=== PATIENT | female | born 1925 | race Caucasian/White ===

== ENCOUNTER 2016-03-03 10:53 | Inpatient (IN) | payer MEDICARE, BC ==
[2016-03-03] MEDS ORDERED: SODIUM CHLORIDE 0.9% 1000 ML SOL IV SCH (11:30)
[2016-03-03 11:42] LABS: BASOPHILS % (AUTO) 0 % (0-3); EOSINOPHILS % (AUTO) 0 % (0-9); HEMATOCRIT 42 % (35-47); MEAN CORPUSCULAR HGB CONC 34.7 gm/dl (32.0-36.0); MONOCYTES % (AUTO) 7.8 % (0-12)
[2016-03-03 12:05] LABS: CALCIUM 8.5 mg/dl (8.5-10.1); POTASSIUM 3.3 mMol/L (3.5-5.1)
[2016-03-03 12:21] LABS: APPEARANCE,URINE Clear; BILIRUBIN,URINE NEGATIVE (NEGATIVE); COLOR,URINE Yellow; GLUCOSE, URINE (UA) NEGATIVE (NEGATIVE); KETONES,URINE 2+ (NEGATIVE); LEUKOCYTE ESTERASE ,URINE NEGATIVE (NEGATIVE); NITRATE,URINE NEGATIVE (NEGATIVE); OCCULT BLOOD,URINE 1+ (NEG-TRACE); PH,URINE 5.5; UROBILINOGEN,URINE 0.2 (0.2-1.0 EU)
[2016-03-03 12:33] LABS: RBC,URINE 0-2 (0-3AV/HPF); WBC,URINE 0-3 (0-5AV/HPF)
[2016-03-03] MEDS: SODIUM CHLORIDE/KCL 20MEQ 1,000 ML IV SCH ×2 (14:54→22:59)
[2016-03-03] MEDS: POTASSIUM CHLORIDE 10 MEQ TER PO SCH ×3 (15:29→20:46)
[2016-03-03] MEDS: LATANOPROST 0.005% SOL LEFTEYE SCH (20:50)
[2016-03-03] MEDS: DORZOLAMIDE/TIMOLOL 200 DROP SOL LEFTEYE SCH (20:50)
[2016-03-04] MEDS: SODIUM CHLORIDE/KCL 20MEQ 1,000 ML IV SCH ×3 (07:01→23:16)
[2016-03-04 07:44] LABS: CALCIUM 8.2 mg/dl (8.5-10.1); POTASSIUM 4.8 mMol/L (3.5-5.1)
[2016-03-04 08:01] LABS: BASOPHILS % (AUTO) 1 % (0-3); EOSINOPHILS % (AUTO) 1 % (0-9); HEMATOCRIT 38 % (35-47); MONOCYTES % (AUTO) 11.4 % (0-12); NEUTROPHILS % (AUTO) 55.2 % (37-80)
[2016-03-04] MEDS: DORZOLAMIDE/TIMOLOL 200 DROP SOL LEFTEYE SCH ×2 (09:35→20:20)
[2016-03-04] MEDS ORDERED: FAMOTIDINE 20 MG TAB ONE (16:39)
[2016-03-04] MEDS ORDERED: ACETAMINOPHEN 325 MG PO PRN (19:03)
[2016-03-04] MEDS: LATANOPROST 0.005% SOL LEFTEYE SCH (20:28)
[2016-03-05 07:30] LABS: CALCIUM 8.1 mg/dl (8.5-10.1); POTASSIUM 4.3 mMol/L (3.5-5.1)
[2016-03-05] MEDS: SODIUM CHLORIDE/KCL 20MEQ 1,000 ML IV SCH (07:47)
[2016-03-05] MEDS: DORZOLAMIDE/TIMOLOL 200 DROP SOL LEFTEYE SCH ×2 (10:11→20:02)
[2016-03-05] MEDS: ASCORBIC ACID/COPPER/VITAMIN SGL PO SCH ×2 (13:25→20:11)
[2016-03-05] MEDS: SODIUM CHLORIDE 0.9% FLUSH 10 ML SOL IV SCH (17:20)
[2016-03-05] MEDS: LATANOPROST 0.005% SOL LEFTEYE SCH (20:10)
[2016-03-06] MEDS: SODIUM CHLORIDE 0.9% FLUSH 10 ML SOL IV SCH ×2 (01:40→07:34)
[2016-03-06] MEDS: DORZOLAMIDE/TIMOLOL 200 DROP SOL LEFTEYE SCH (09:47)
[2016-03-06] MEDS: ASCORBIC ACID/COPPER/VITAMIN SGL PO SCH (09:47)
[2016-03-06 11:10] VITALS: BP 150/72; PULSE 68; RESP 20; TEMP 96.7; O2SAT 95
== END 2016-03-06 13:03 | disposition swing bed (61) | DRG 641 ==
LOC: ED 10:53 → UNDOADMIN 13:15 → ACUTE CARE 13:15
PROVIDERS: ADMIT Family Medicine; ATTEND Family Medicine
PROC: F01L5ZZ Range of Motion and Joint Integrity Assessment of Musculoskeletal System - Lower Back / Lower Extremity (ICD-10-PCS; principal; 2016-03-04)
PROC: F01L0ZZ Muscle Performance Assessment of Musculoskeletal System - Lower Back / Lower Extremity (ICD-10-PCS; 2016-03-04)
PROC: F01ZDZZ Gait and/or Balance Assessment (ICD-10-PCS; 2016-03-04)
PROC: F01ZCZZ Transfer Assessment (ICD-10-PCS; 2016-03-04)
PROC: F07Z8ZZ Transfer Training Treatment (ICD-10-PCS; 2016-03-04)
PROC: F07L6ZZ Therapeutic Exercise Treatment of Musculoskeletal System - Lower Back / Lower Extremity (ICD-10-PCS; 2016-03-04)
DX: E86.0 Dehydration (principal); M62.82 Rhabdomyolysis; R41.0 Disorientation, unspecified; M25.551 Pain in right hip; W19.XXXA Unspecified fall, initial encounter; E87.6 Hypokalemia; B02.9 Zoster without complications
CPT/HCPCS: 36415; 70450; 73521; 80048; 81001; 82550; 84484; 85025; 93005; 99283; 99284

== ENCOUNTER 2017-06-13 11:45 | Inpatient (IN) | payer MEDICARE, BC ==
[2017-06-13 13:14] LABS: BASOPHILS % (AUTO) 1 % (0-3); EOSINOPHILS % (AUTO) 1 % (0-9); HEMATOCRIT 37 % (35-47); HEMOGLOBIN 12.3 gm/dl (12.0-15.5); LYMPHOCYTES % (AUTO) 19.5 % (10-50); MEAN CORPUSCULAR HEMOGLOBIN 30.3 pg (27.0-32.0); MEAN CORPUSCULAR HGB CONC 33.4 gm/dl (32.0-36.0); MEAN CORPUSCULAR VOLUME 91 fL (81-99); MONOCYTES % (AUTO) 5.2 % (0-12)
[2017-06-13 13:27] LABS: INR 0.99 (0.86-1.12)
[2017-06-13 13:31] LABS: ALBUMIN 3.2 gm/dl (3.4-5.0); BILIRUBIN,TOTAL 0.6 mg/dl (0.2-1.0); CALCIUM 8.3 mg/dl (8.5-10.1); CARBON DIOXIDE 29.8 mEq/L (21-32); CREATININE 0.83 mg/dl (0.60-1.00); POTASSIUM 4.2 mMol/L (3.5-5.1); TOTAL PROTEIN 6.1 gm/dl (6.4-8.2)
[2017-06-13 14:12] LABS: APPEARANCE,URINE Clear; BILIRUBIN,URINE NEGATIVE (NEGATIVE); COLOR,URINE Yellow; GLUCOSE, URINE (UA) NEGATIVE (NEGATIVE); KETONES,URINE NEGATIVE (NEGATIVE); LEUKOCYTE ESTERASE ,URINE NEGATIVE (NEGATIVE); NITRATE,URINE NEGATIVE (NEGATIVE); OCCULT BLOOD,URINE NEGATIVE (NEG-TRACE); UROBILINOGEN,URINE 0.2 (0.2-1.0 EU)
[2017-06-13 14:28] LABS: BACTERIA TRACE (< 1+); CRYSTALS NEGATIVE (0-3 AVE/HPF); EPITHELIAL CELLS 0-1 (SQUAMOUS); RBC,URINE NEGATIVE (0-3AV/HPF); WBC,URINE 0-2 (0-5AV/HPF)
[2017-06-13] MEDS ORDERED: HYDROMORPHONE HCL 2 MG/ML SOL ONE (15:58)
[2017-06-13] MEDS ORDERED: HYDROMORPHONE 1 MG/ML SYRINGE IV ONE (16:00)
[2017-06-13] MEDS: ENOXAPARIN 30 MG SOL SC SCH (18:25)
[2017-06-13 18:29] LABS: ABO A; ANTIBODY SCREEN Negative; RH TYPE Positive
[2017-06-13] MEDS ORDERED: TIMOLOL MALEAT LEFTEYE SCH (21:00)
[2017-06-13] MEDS ORDERED: DORZOLAMIDE HCL LEFTEYE SCH (21:00)
[2017-06-13] MEDS ORDERED: [UNRECOGNIZED DRUG - OTHER] LEFTEYE SCH (21:00)
[2017-06-13] MEDS: SODIUM CHLORIDE 0.9% FLUSH 10 ML SOL IV SCH (21:26)
[2017-06-13] MEDS: ACETAMINOPHEN 325 MG PO PRN (21:26)
[2017-06-14] MEDS: ACETAMINOPHEN 325 MG PO PRN ×4 (02:59→23:25)
[2017-06-14] MEDS: ENOXAPARIN 30 MG SOL SC SCH (04:21)
[2017-06-14] MEDS: SODIUM CHLORIDE 0.9% FLUSH 10 ML SOL IV SCH ×3 (04:23→21:07)
[2017-06-14 07:10] LABS: CALCIUM 8.1 mg/dl (8.5-10.1); CARBON DIOXIDE 29.2 mEq/L (21-32); CREATININE 0.8 mg/dl (0.60-1.00); POTASSIUM 3.8 mMol/L (3.5-5.1)
[2017-06-14 07:18] LABS: BASOPHILS % (AUTO) 1 % (0-3); EOSINOPHILS % (AUTO) 2 % (0-9); HEMATOCRIT 34 % (35-47); HEMOGLOBIN 11.7 gm/dl (12.0-15.5); LYMPHOCYTES % (AUTO) 23.1 % (10-50); MEAN CORPUSCULAR HEMOGLOBIN 30.6 pg (27.0-32.0); MEAN CORPUSCULAR HGB CONC 34.1 gm/dl (32.0-36.0); MEAN CORPUSCULAR VOLUME 90 fL (81-99); MONOCYTES % (AUTO) 7.5 % (0-12); NEUTROPHILS % (AUTO) 66.3 % (37-80)
[2017-06-14 08:14] LABS: UNIT TYPE A POSITIVE
[2017-06-14 08:15] LABS: UNIT TYPE A POSITIVE
[2017-06-14] MEDS ORDERED: HYDROMORPHONE 1 MG/ML SYRINGE IV PRN (09:16)
[2017-06-14] MEDS: FUROSEMIDE 20 MG TAB PO SCH (10:33)
[2017-06-14] MEDS: POTASSIUM CHLORIDE 10 MEQ TER PO SCH (10:33)
[2017-06-14] MEDS: DORZOLAMIDE HCL 2% SOL LEFTEYE SCH ×2 (10:34→21:05)
[2017-06-14] MEDS: TIMOLOL MALEATE 0.5% OPHTHAL SOL LEFTEYE SCH ×2 (10:34→21:05)
[2017-06-14] MEDS ORDERED: DIPHENHYDRAMINE 25 MG CAP PO PRN (19:26)
[2017-06-14] MEDS: OXYCODONE HYDROCHLORIDE 5 MG TAB PO PRN (23:25)
[2017-06-15] MEDS: SODIUM CHLORIDE 0.9% FLUSH 10 ML SOL IV SCH ×5 (05:10→22:01)
[2017-06-15 07:01] LABS: BASOPHILS % (AUTO) 0 % (0-3); EOSINOPHILS % (AUTO) 2 % (0-9); HEMATOCRIT 35 % (35-47); MEAN CORPUSCULAR HEMOGLOBIN 30.4 pg (27.0-32.0); MEAN CORPUSCULAR VOLUME 89 fL (81-99); MONOCYTES % (AUTO) 5.9 % (0-12); NEUTROPHILS % (AUTO) 77.9 % (37-80)
[2017-06-15 07:06] LABS: CARBON DIOXIDE 28.7 mEq/L (21-32); CREATININE 0.86 mg/dl (0.60-1.00); POTASSIUM 3.8 mMol/L (3.5-5.1)
[2017-06-15] MEDS ORDERED: SCOPOLAMINE 1.5MG PATCH TD SCH (08:00)
[2017-06-15] MEDS ORDERED: LACTATED RINGERS 1,000 ML IV ONE (09:00)
[2017-06-15] MEDS: DORZOLAMIDE HCL 2% SOL LEFTEYE SCH ×2 (09:11→20:15)
[2017-06-15] MEDS: TIMOLOL MALEATE 0.5% OPHTHAL SOL LEFTEYE SCH ×2 (09:11→21:21)
[2017-06-15] MEDS ORDERED: PROPOFOL 500 MG/50 ML EMU IV ONE (09:59)
[2017-06-15] MEDS ORDERED: KETAMINE HYDROCHLORIDE 50 MG/ML SOL ONE (10:00)
[2017-06-15] MEDS ORDERED: MIDAZOLAM 2 MG/2 ML SOL ONE (10:00)
[2017-06-15] MEDS ORDERED: LACTATED RINGERS 1,000 ML IV SCH (10:00)
[2017-06-15] MEDS ORDERED: CEFAZOLIN (PREMIX) 1 GM 1 GM/50 ML SOL IV ONE (11:00)
[2017-06-15] MEDS ORDERED: CEFAZOLIN SODIUM 1 GM PDS ONE ×2 (11:13→19:30)
[2017-06-15] MEDS ORDERED: SODIUM CHLORIDE 20 ML 40 ML ONE (11:22)
[2017-06-15] MEDS ORDERED: TRANEXAMIC ACID 100 MG/ML SOL ONE ×2 (11:22→12:34)
[2017-06-15] MEDS ORDERED: BUPIVACAINE LIPOSOME 20 ML SUS ONE (11:22)
[2017-06-15] MEDS ORDERED: PHENYLEPHRINE HYDROCHLORIDE 10 MG/ML SOL ONE (12:05)
[2017-06-15] MEDS ORDERED: CEFAZOLIN SODIUM 1 GM PDS IV ONE (12:22)
[2017-06-15] MEDS ORDERED: EPHEDRINE SULFATE 50 MG/ML SOL ONE (12:26)
[2017-06-15] MEDS ORDERED: PROPOFOL 10 MG/ML EMU IV ONE (12:42)
[2017-06-15] MEDS ORDERED: ONDANSETRON HCL 4 MG/2 ML SOL IV PRN (13:37)
[2017-06-15] MEDS ORDERED: SODIUM CHLORIDE 0.9% 500 ML 500 ML IV PRN (13:37)
[2017-06-15] MEDS ORDERED: MORPHINE SULFATE 10 MG/ML SOL IV PRN (13:37)
[2017-06-15] MEDS ORDERED: ONDANSETRON 4 MG ODT BU PRN (13:37)
[2017-06-15] MEDS ORDERED: MAGNESIUM HYDROXIDE 30 ML SUS PO PRN (13:37)
[2017-06-15] MEDS ORDERED: DEXAMETHASONE 20 MG/5 ML (4 MG/ML SOL) ONE (13:46)
[2017-06-15] MEDS: FUROSEMIDE 20 MG TAB PO SCH (14:13)
[2017-06-15] MEDS: POTASSIUM CHLORIDE 10 MEQ TER PO SCH (14:13)
[2017-06-15] MEDS: LACTATED RINGERS 1,000 ML IV SCH (17:30)
[2017-06-15] MEDS ORDERED: SODIUM CHLORIDE 0.9% 100 ML 100 ML IV ONE (19:30)
[2017-06-15] MEDS: CEFAZOLIN SODIUM 1 GM PDS 1 GM in SODIUM CHLORIDE 0.9% 100 ML 100 ML IV SCH (20:05)
[2017-06-15] MEDS: ACETAMINOPHEN 325 MG PO PRN (21:23)
[2017-06-16] MEDS: LACTATED RINGERS 1,000 ML IV SCH (03:40)
[2017-06-16] MEDS ORDERED: SODIUM CHLORIDE 0.9% 100 ML 100 ML IV ONE (04:38)
[2017-06-16] MEDS ORDERED: CEFAZOLIN SODIUM 1 GM PDS ONE (04:38)
[2017-06-16] MEDS: CEFAZOLIN SODIUM 1 GM PDS 1 GM in SODIUM CHLORIDE 0.9% 100 ML 100 ML IV SCH (04:42)
[2017-06-16] MEDS: SODIUM CHLORIDE 0.9% FLUSH 10 ML SOL IV SCH ×5 (04:53→20:40)
[2017-06-16] MEDS: ACETAMINOPHEN 325 MG PO PRN ×2 (06:50→13:46)
[2017-06-16 07:11] LABS: HEMOGLOBIN 11.1 gm/dl (12.0-15.5); MEAN CORPUSCULAR HEMOGLOBIN 31.1 pg (27.0-32.0); MEAN CORPUSCULAR HGB CONC 34.6 gm/dl (32.0-36.0)
[2017-06-16] MEDS: OXYCODONE HYDROCHLORIDE 5 MG TAB PO PRN ×2 (07:55→14:26)
[2017-06-16] MEDS ORDERED: HYDROMORPHONE HCL 2 MG/ML SOL IV PRN (09:15)
[2017-06-16] MEDS: FUROSEMIDE 20 MG TAB PO SCH (09:41)
[2017-06-16] MEDS: POTASSIUM CHLORIDE 10 MEQ TER PO SCH (09:41)
[2017-06-16] MEDS: TIMOLOL MALEATE 0.5% OPHTHAL SOL LEFTEYE SCH ×2 (09:42→21:13)
[2017-06-16] MEDS: DORZOLAMIDE HCL 2% SOL LEFTEYE SCH ×2 (09:42→20:41)
[2017-06-16] MEDS: ENOXAPARIN 60 MG SOL SC SCH ×2 (09:53→20:37)
[2017-06-16] MEDS ORDERED: TRAMADOL HYDROCHLORIDE 50 MG TAB PO PRN (18:39)
[2017-06-16] MEDS: WARFARIN SODIUM 3 MG TAB PO SCH (18:46)
[2017-06-16] MEDS: ACETAMINOPHEN 500 MG 500 MG TAB PO SCH ×3 (20:39→23:46)
[2017-06-16] MEDS: LATANOPROST 0.005% SOL LEFTEYE SCH (20:58)
[2017-06-17 07:40] LABS: CALCIUM 8.3 mg/dl (8.5-10.1); CARBON DIOXIDE 26.4 mEq/L (21-32); CREATININE 0.81 mg/dl (0.60-1.00); POTASSIUM 3.8 mMol/L (3.5-5.1)
[2017-06-17 07:42] LABS: HEMOGLOBIN 9.9 gm/dl (12.0-15.5); INR 1.1 (0.86-1.12); MEAN CORPUSCULAR HEMOGLOBIN 30.7 pg (27.0-32.0); MEAN CORPUSCULAR HGB CONC 34.2 gm/dl (32.0-36.0)
[2017-06-17] MEDS: FUROSEMIDE 20 MG TAB PO SCH (09:37)
[2017-06-17] MEDS: ACETAMINOPHEN 500 MG 500 MG TAB PO SCH ×3 (09:37→20:28)
[2017-06-17] MEDS: POTASSIUM CHLORIDE 10 MEQ TER PO SCH (09:37)
[2017-06-17] MEDS: SODIUM CHLORIDE 0.9% FLUSH 10 ML SOL IV SCH ×3 (09:39→20:14)
[2017-06-17] MEDS: DORZOLAMIDE HCL 2% SOL LEFTEYE SCH ×2 (09:39→20:15)
[2017-06-17] MEDS: TIMOLOL MALEATE 0.5% OPHTHAL SOL LEFTEYE SCH ×2 (09:39→20:50)
[2017-06-17] MEDS: ENOXAPARIN 60 MG SOL SC SCH ×2 (09:40→20:12)
[2017-06-17] MEDS: WARFARIN SODIUM 3 MG TAB PO SCH (18:19)
[2017-06-17] MEDS: LATANOPROST 0.005% SOL LEFTEYE SCH (20:31)
[2017-06-18] MEDS: SODIUM CHLORIDE 0.9% FLUSH 10 ML SOL IV SCH ×3 (05:34→21:15)
[2017-06-18 07:35] LABS: HEMOGLOBIN 9.4 gm/dl (12.0-15.5); MEAN CORPUSCULAR HEMOGLOBIN 30.5 pg (27.0-32.0); MEAN CORPUSCULAR HGB CONC 33.9 gm/dl (32.0-36.0)
[2017-06-18 07:55] LABS: CALCIUM 7.9 mg/dl (8.5-10.1); CARBON DIOXIDE 28.7 mEq/L (21-32); CREATININE 0.72 mg/dl (0.60-1.00); POTASSIUM 4.2 mMol/L (3.5-5.1)
[2017-06-18] MEDS: FUROSEMIDE 20 MG TAB PO SCH (08:32)
[2017-06-18] MEDS: ACETAMINOPHEN 500 MG 500 MG TAB PO SCH ×3 (08:32→21:04)
[2017-06-18] MEDS: POTASSIUM CHLORIDE 10 MEQ TER PO SCH (08:32)
[2017-06-18] MEDS: TIMOLOL MALEATE 0.5% OPHTHAL SOL LEFTEYE SCH ×2 (08:35→21:44)
[2017-06-18] MEDS: DORZOLAMIDE HCL 2% SOL LEFTEYE SCH ×2 (08:36→21:02)
[2017-06-18] MEDS: ENOXAPARIN 60 MG SOL SC SCH ×2 (08:37→21:00)
[2017-06-18] MEDS: WARFARIN SODIUM 3 MG TAB PO SCH (18:13)
[2017-06-18] MEDS: AMLODIPINE 5 MG TAB PO SCH (18:13)
[2017-06-18] MEDS: LATANOPROST 0.005% SOL LEFTEYE SCH (21:18)
[2017-06-19] MEDS: SODIUM CHLORIDE 0.9% FLUSH 10 ML SOL IV SCH ×2 (05:57→13:57)
[2017-06-19 07:26] LABS: BASOPHILS % (AUTO) 1 % (0-3); EOSINOPHILS % (AUTO) 2 % (0-9); HEMATOCRIT 29 % (35-47); HEMOGLOBIN 9.7 gm/dl (12.0-15.5); LYMPHOCYTES % (AUTO) 20.3 % (10-50); MEAN CORPUSCULAR HEMOGLOBIN 30.4 pg (27.0-32.0); MEAN CORPUSCULAR HGB CONC 33.7 gm/dl (32.0-36.0); MEAN CORPUSCULAR VOLUME 90 fL (81-99); NEUTROPHILS % (AUTO) 70.2 % (37-80)
[2017-06-19 07:29] LABS: CARBON DIOXIDE 26.1 mEq/L (21-32); CREATININE 0.68 mg/dl (0.60-1.00)
[2017-06-19 07:36] LABS: INR 3.09 (0.86-1.12)
[2017-06-19] MEDS: ACETAMINOPHEN 500 MG 500 MG TAB PO SCH ×2 (08:35→13:57)
[2017-06-19 08:36] VITALS: RESP 20
[2017-06-19] MEDS: FUROSEMIDE 20 MG TAB PO SCH (08:36)
[2017-06-19] MEDS: POTASSIUM CHLORIDE 10 MEQ TER PO SCH (08:36)
[2017-06-19] MEDS: AMLODIPINE 5 MG TAB PO SCH (08:37)
[2017-06-19] MEDS: TIMOLOL MALEATE 0.5% OPHTHAL SOL LEFTEYE SCH (08:39)
[2017-06-19] MEDS: DORZOLAMIDE HCL 2% SOL LEFTEYE SCH (08:40)
[2017-06-19 16:08] VITALS: BP 144/81; PULSE 70; TEMP 98.6; O2SAT 99
[2017-06-19] MEDS ORDERED: WARFARIN SODIUM 2.5 MG TAB PO SCH (18:00)
[2017-06-19] MEDS ORDERED: WARFARIN SODIUM 2 MG TAB PO SCH (18:00)
== END 2017-06-19 16:10 | disposition swing bed (61) | DRG 470 ==
LOC: ED 11:45 → ACUTE CARE 16:05 → UNDOADMIN 16:05 → ACUTE CARE 16:15
PROVIDERS: ADMIT Family Medicine; ATTEND Family Medicine
PROC: 0SRR0J9 Replacement of Right Hip Joint, Femoral Surface with Synthetic Substitute, Cemented, Open Approach (ICD-10-PCS; principal; 2017-06-15 11:30)
PROC: F01ZBFZ Bed Mobility Assessment using Assistive, Adaptive, Supportive or Protective Equipment (ICD-10-PCS; 2017-06-16)
PROC: F01K0ZZ Muscle Performance Assessment of Musculoskeletal System - Upper Back / Upper Extremity (ICD-10-PCS; 2017-06-16)
PROC: F02Z0FZ Bathing/Showering Assessment using Assistive, Adaptive, Supportive or Protective Equipment (ICD-10-PCS; 2017-06-16)
PROC: F02Z3FZ Grooming/Personal Hygiene Assessment using Assistive, Adaptive, Supportive or Protective Equipment (ICD-10-PCS; 2017-06-16)
DX: S72.011A Unspecified intracapsular fracture of right femur, initial encounter for closed fracture (principal); S72.001A Fracture of unspecified part of neck of right femur, initial encounter for closed fracture; M25.511 Pain in right shoulder; I69.911 Memory deficit following unspecified cerebrovascular disease; I10 Essential (primary) hypertension; R60.9 Edema, unspecified; W18.39XA Other fall on same level, initial encounter; R21 Rash and other nonspecific skin eruption; M62.81 Muscle weakness (generalized); R33.9 Retention of urine, unspecified
CPT/HCPCS: 36415; 51798; 73030; 73200; 73501; 73502; 80048; 80053; 81001; 85025; 85027; 85610; 86850; 86900; 86901; 86920; 93005; 94150; 94762; 96374; 99070; 99283; 99285; J0690; J1100; J1170; J1650; J2250; A4450; A6232; A9270-GY; J2370; J2704; J3490; L1830; Q3014

== ENCOUNTER 2017-06-19 12:11 | Inpatient (IN) | payer MEDICARE, BC ==
[2017-06-19] MEDS ORDERED: ONDANSETRON 4 MG ODT BU PRN (15:48)
[2017-06-19] MEDS ORDERED: MAGNESIUM HYDROXIDE 30 ML SUS PO PRN (15:48)
[2017-06-19] MEDS ORDERED: WARFARIN SODIUM 2 MG TAB PO SCH ×2 (18:00)
[2017-06-19] MEDS ORDERED: DORZOLAMIDE HCL OP SCH (21:00)
[2017-06-19] MEDS ORDERED: EYE OP SCH (21:00)
[2017-06-19] MEDS ORDERED: TIMOLOL MALEATE 0.5% OP SCH (21:00)
[2017-06-19] MEDS ORDERED: LATANOPROST 0.005% LEFTEYE SCH (21:00)
[2017-06-19] MEDS: ACETAMINOPHEN 500 MG 500 MG TAB PO SCH (21:21)
[2017-06-20 07:22] LABS: INR 3.9 (0.86-1.12)
[2017-06-20] MEDS: POTASSIUM CHLORIDE 10 MEQ TER PO SCH (09:34)
[2017-06-20] MEDS: FUROSEMIDE 20 MG TAB PO SCH (09:34)
[2017-06-20] MEDS: TIMOLOL MALEATE 0.5% OPHTHAL SOL OP SCH ×2 (09:35→20:19)
[2017-06-20] MEDS: ACETAMINOPHEN 500 MG 500 MG TAB PO SCH ×3 (09:36→20:19)
[2017-06-20] MEDS: DORZOLAMIDE HCL 2% SOL OP SCH ×2 (09:36→20:19)
[2017-06-20] MEDS: AMLODIPINE 5 MG TAB PO SCH (09:59)
[2017-06-20] MEDS: LATANOPROST 0.005% SOL LEFTEYE SCH (20:19)
[2017-06-20] MEDS: HYDROCORTISONE 2.5% TOP SCH (21:25)
[2017-06-21 07:33] LABS: INR 3.49 (0.86-1.12)
[2017-06-21] MEDS: DORZOLAMIDE HCL 2% SOL OP SCH ×2 (08:00→20:33)
[2017-06-21] MEDS: POTASSIUM CHLORIDE 10 MEQ TER PO SCH (08:01)
[2017-06-21] MEDS: FUROSEMIDE 20 MG TAB PO SCH (08:01)
[2017-06-21] MEDS: ACETAMINOPHEN 500 MG 500 MG TAB PO SCH ×3 (08:01→20:33)
[2017-06-21] MEDS: AMLODIPINE 5 MG TAB PO SCH (08:01)
[2017-06-21] MEDS: TIMOLOL MALEATE 0.5% OPHTHAL SOL OP SCH ×2 (08:05→20:33)
[2017-06-21] MEDS: HYDROCORTISONE 2.5% TOP SCH ×2 (09:02→20:32)
[2017-06-21] MEDS: LATANOPROST 0.005% SOL LEFTEYE SCH (20:33)
[2017-06-22] MEDS: ACETAMINOPHEN 500 MG 500 MG TAB PO SCH ×3 (08:30→21:17)
[2017-06-22] MEDS: POTASSIUM CHLORIDE 10 MEQ TER PO SCH (08:30)
[2017-06-22] MEDS: FUROSEMIDE 20 MG TAB PO SCH (08:31)
[2017-06-22] MEDS: AMLODIPINE 5 MG TAB PO SCH (08:31)
[2017-06-22] MEDS: DORZOLAMIDE HCL 2% SOL OP SCH ×2 (08:32→21:16)
[2017-06-22] MEDS: TIMOLOL MALEATE 0.5% OPHTHAL SOL OP SCH ×2 (08:33→21:16)
[2017-06-22] MEDS: HYDROCORTISONE 2.5% TOP SCH ×2 (09:35→21:16)
[2017-06-22 14:46] LABS: INR 2.87 (0.86-1.12)
[2017-06-22] MEDS ORDERED: WARFARIN SODIUM 1 MG TAB PO ONE (18:00)
[2017-06-22] MEDS: LATANOPROST 0.005% SOL LEFTEYE SCH (21:16)
[2017-06-23 08:35] LABS: INR 2.83 (0.86-1.12)
[2017-06-23] MEDS: POTASSIUM CHLORIDE 10 MEQ TER PO SCH (08:56)
[2017-06-23] MEDS: AMLODIPINE 5 MG TAB PO SCH (08:57)
[2017-06-23] MEDS: FUROSEMIDE 20 MG TAB PO SCH (08:57)
[2017-06-23] MEDS: HYDROCORTISONE 2.5% TOP SCH ×2 (08:58→21:00)
[2017-06-23] MEDS: ACETAMINOPHEN 500 MG 500 MG TAB PO SCH ×3 (08:59→20:38)
[2017-06-23] MEDS: TIMOLOL MALEATE 0.5% OPHTHAL SOL OP SCH ×2 (09:00→20:38)
[2017-06-23] MEDS: DORZOLAMIDE HCL 2% SOL OP SCH ×2 (09:00→20:41)
[2017-06-23] MEDS: WARFARIN SODIUM 1 MG TAB PO SCH (18:18)
[2017-06-23] MEDS: LATANOPROST 0.005% SOL LEFTEYE SCH (21:34)
[2017-06-24] MEDS: TIMOLOL MALEATE 0.5% OPHTHAL SOL OP SCH ×2 (08:43→20:13)
[2017-06-24] MEDS: AMLODIPINE 5 MG TAB PO SCH (08:43)
[2017-06-24] MEDS: HYDROCORTISONE 2.5% TOP SCH ×2 (08:43→20:00)
[2017-06-24] MEDS: ACETAMINOPHEN 500 MG 500 MG TAB PO SCH ×3 (08:43→20:12)
[2017-06-24] MEDS: FUROSEMIDE 20 MG TAB PO SCH (08:43)
[2017-06-24] MEDS: POTASSIUM CHLORIDE 10 MEQ TER PO SCH (08:43)
[2017-06-24] MEDS: DORZOLAMIDE HCL 2% SOL OP SCH ×2 (08:43→20:15)
[2017-06-24] MEDS: WARFARIN SODIUM 1 MG TAB PO SCH (17:56)
[2017-06-24] MEDS: LATANOPROST 0.005% SOL LEFTEYE SCH (20:18)
[2017-06-25] MEDS: HYDROCORTISONE 2.5% TOP SCH ×2 (08:23→20:00)
[2017-06-25] MEDS: FUROSEMIDE 20 MG TAB PO SCH (08:23)
[2017-06-25] MEDS: POTASSIUM CHLORIDE 10 MEQ TER PO SCH (08:23)
[2017-06-25] MEDS: ACETAMINOPHEN 500 MG 500 MG TAB PO SCH ×3 (08:23→20:00)
[2017-06-25] MEDS: AMLODIPINE 5 MG TAB PO SCH (08:23)
[2017-06-25] MEDS: TIMOLOL MALEATE 0.5% OPHTHAL SOL OP SCH ×2 (09:15→20:00)
[2017-06-25] MEDS: DORZOLAMIDE HCL 2% SOL OP SCH ×2 (09:16→20:00)
[2017-06-25] MEDS ORDERED: WARFARIN SODIUM 3 MG TAB PO SCH ×2 (18:00)
[2017-06-25] MEDS: LATANOPROST 0.005% SOL LEFTEYE SCH (20:00)
[2017-06-26 07:44] LABS: INR 1.9 (0.86-1.12)
[2017-06-26] MEDS: DORZOLAMIDE HCL 2% SOL OP SCH ×2 (08:34→20:26)
[2017-06-26] MEDS: ACETAMINOPHEN 500 MG 500 MG TAB PO SCH ×3 (08:35→20:25)
[2017-06-26] MEDS: POTASSIUM CHLORIDE 10 MEQ TER PO SCH (08:35)
[2017-06-26] MEDS: AMLODIPINE 5 MG TAB PO SCH (08:36)
[2017-06-26] MEDS: FUROSEMIDE 20 MG TAB PO SCH (08:36)
[2017-06-26] MEDS: TIMOLOL MALEATE 0.5% OPHTHAL SOL OP SCH ×2 (08:36→20:26)
[2017-06-26] MEDS: WARFARIN SODIUM 3 MG TAB PO SCH (17:35)
[2017-06-26] MEDS: LATANOPROST 0.005% SOL LEFTEYE SCH (20:26)
[2017-06-27] MEDS: AMLODIPINE 5 MG TAB PO SCH (08:07)
[2017-06-27] MEDS: POTASSIUM CHLORIDE 10 MEQ TER PO SCH (08:07)
[2017-06-27] MEDS: ACETAMINOPHEN 500 MG 500 MG TAB PO SCH ×3 (08:07→20:29)
[2017-06-27] MEDS: FUROSEMIDE 20 MG TAB PO SCH (08:07)
[2017-06-27] MEDS: TIMOLOL MALEATE 0.5% OPHTHAL SOL OP SCH ×2 (08:08→20:30)
[2017-06-27] MEDS: DORZOLAMIDE HCL 2% SOL OP SCH ×2 (08:08→20:31)
[2017-06-27 10:21] LABS: CALCIUM 8.2 mg/dl (8.5-10.1); CARBON DIOXIDE 27.2 mEq/L (21-32); CREATININE 0.86 mg/dl (0.60-1.00); POTASSIUM 3.9 mMol/L (3.5-5.1)
[2017-06-27] MEDS: WARFARIN SODIUM 3 MG TAB PO SCH (18:52)
[2017-06-27] MEDS: LATANOPROST 0.005% SOL LEFTEYE SCH (20:31)
[2017-06-28] MEDS: FUROSEMIDE 20 MG TAB PO SCH (09:35)
[2017-06-28] MEDS: AMLODIPINE 5 MG TAB PO SCH (09:35)
[2017-06-28] MEDS: POTASSIUM CHLORIDE 10 MEQ TER PO SCH (09:35)
[2017-06-28] MEDS: ACETAMINOPHEN 500 MG 500 MG TAB PO SCH ×3 (09:35→20:34)
[2017-06-28] MEDS: TIMOLOL MALEATE 0.5% OPHTHAL SOL OP SCH ×2 (09:36→20:34)
[2017-06-28] MEDS: DORZOLAMIDE HCL 2% SOL OP SCH ×2 (09:36→20:34)
[2017-06-28 14:09] LABS: APPEARANCE,URINE Cloudy; BILIRUBIN,URINE NEGATIVE (NEGATIVE); COLOR,URINE Yellow; GLUCOSE, URINE (UA) NEGATIVE (NEGATIVE); KETONES,URINE NEGATIVE (NEGATIVE); LEUKOCYTE ESTERASE ,URINE 3+ (NEGATIVE); NITRATE,URINE POSITIVE (NEGATIVE); OCCULT BLOOD,URINE 2+ (NEG-TRACE); UROBILINOGEN,URINE 0.2 (0.2-1.0 EU)
[2017-06-28 14:26] LABS: RBC,URINE 15-20 (0-3AV/HPF); WBC,URINE TNTC (0-5AV/HPF)
[2017-06-28 14:27] LABS: BACTERIA 3+ (< 1+); CRYSTALS NEGATIVE (0-3 AVE/HPF)
[2017-06-28] MEDS: CIPROFLOXACIN HCL 500 MG TAB PO SCH (16:18)
[2017-06-28] MEDS ORDERED: WARFARIN SODIUM 1 MG TAB PO SCH (18:00)
[2017-06-28] MEDS: LATANOPROST 0.005% SOL LEFTEYE SCH (20:33)
[2017-06-29] MEDS: CIPROFLOXACIN HCL 500 MG TAB PO SCH ×2 (05:00→16:11)
[2017-06-29 07:30] LABS: INR 2.89 (0.86-1.12)
[2017-06-29 07:56] VITALS: RESP 18
[2017-06-29] MEDS: ACETAMINOPHEN 500 MG 500 MG TAB PO SCH ×3 (08:23→20:58)
[2017-06-29] MEDS: POTASSIUM CHLORIDE 10 MEQ TER PO SCH (08:23)
[2017-06-29] MEDS: TIMOLOL MALEATE 0.5% OPHTHAL SOL OP SCH ×2 (08:24→20:58)
[2017-06-29] MEDS: AMLODIPINE 5 MG TAB PO SCH (08:24)
[2017-06-29] MEDS: DORZOLAMIDE HCL 2% SOL OP SCH ×2 (08:24→20:58)
[2017-06-29] MEDS: FUROSEMIDE 20 MG TAB PO SCH (08:27)
[2017-06-29] MEDS ORDERED: WARFARIN SODIUM 1 MG TAB PO SCH (18:00)
[2017-06-29] MEDS ORDERED: WARFARIN SODIUM 3 MG TAB PO SCH (18:00)
[2017-06-29] MEDS: LATANOPROST 0.005% SOL LEFTEYE SCH (20:58)
[2017-06-30] MEDS: CIPROFLOXACIN HCL 500 MG TAB PO SCH (03:32)
[2017-06-30] MEDS: POTASSIUM CHLORIDE 10 MEQ TER PO SCH (08:35)
[2017-06-30] MEDS: FUROSEMIDE 20 MG TAB PO SCH (08:35)
[2017-06-30] MEDS: ACETAMINOPHEN 500 MG 500 MG TAB PO SCH (08:35)
[2017-06-30] MEDS: AMLODIPINE 5 MG TAB PO SCH (08:37)
[2017-06-30] MEDS: DORZOLAMIDE HCL 2% SOL OP SCH (08:38)
[2017-06-30] MEDS: TIMOLOL MALEATE 0.5% OPHTHAL SOL OP SCH (08:43)
[2017-06-30 09:17] VITALS: BP 124/81; PULSE 90; TEMP 99; O2SAT 97
== END 2017-06-30 12:35 | DRG 536 ==
LOC: ACUTE CARE 16:15 → UNDOADMIN 16:16
PROVIDERS: ADMIT Family Medicine; ATTEND Family Medicine
PROC: F01K5ZZ Range of Motion and Joint Integrity Assessment of Musculoskeletal System - Upper Back / Upper Extremity (ICD-10-PCS; principal; 2017-06-20)
PROC: F02Z1FZ Dressing Assessment using Assistive, Adaptive, Supportive or Protective Equipment (ICD-10-PCS; 2017-06-20)
PROC: F02Z3FZ Grooming/Personal Hygiene Assessment using Assistive, Adaptive, Supportive or Protective Equipment (ICD-10-PCS; 2017-06-20)
DX: S72.001A Fracture of unspecified part of neck of right femur, initial encounter for closed fracture (principal); N39.0 Urinary tract infection, site not specified; H35.30 Unspecified macular degeneration; I10 Essential (primary) hypertension; R41.89 Other symptoms and signs involving cognitive functions and awareness; R60.9 Edema, unspecified; R33.9 Retention of urine, unspecified; Z96.641 Presence of right artificial hip joint
CPT/HCPCS: 36415; 51798; 72120; 80048; 81001; 85610; 87077; 87088; 87186; A9270-GY

== ENCOUNTER 2017-08-15 19:30 | Inpatient (IN) | payer MEDICARE, BC ==
[2017-08-15 20:25] LABS: BASOPHILS % (AUTO) 1 % (0-3); EOSINOPHILS % (AUTO) 2 % (0-9); HEMATOCRIT 35 % (35-47); HEMOGLOBIN 11.6 gm/dl (12.0-15.5); LYMPHOCYTES % (AUTO) 28.7 % (10-50); MEAN CORPUSCULAR HEMOGLOBIN 29.3 pg (27.0-32.0); MEAN CORPUSCULAR HGB CONC 33.2 gm/dl (32.0-36.0); MEAN CORPUSCULAR VOLUME 88 fL (81-99); MONOCYTES % (AUTO) 6.5 % (0-12); NEUTROPHILS % (AUTO) 61.9 % (37-80)
[2017-08-15 20:37] LABS: CARBON DIOXIDE 28.7 mEq/L (21-32); CREATININE 0.96 mg/dl (0.60-1.00); POTASSIUM 4.1 mMol/L (3.5-5.1)
[2017-08-15 20:42] LABS: APPEARANCE,URINE Clear; BILIRUBIN,URINE NEGATIVE (NEGATIVE); COLOR,URINE Yellow; GLUCOSE, URINE (UA) NEGATIVE (NEGATIVE); KETONES,URINE NEGATIVE (NEGATIVE); LEUKOCYTE ESTERASE ,URINE NEGATIVE (NEGATIVE); NITRATE,URINE NEGATIVE (NEGATIVE); OCCULT BLOOD,URINE NEGATIVE (NEG-TRACE); UROBILINOGEN,URINE 0.2 (0.2-1.0 EU)
[2017-08-15 20:58] LABS: BACTERIA NEGATIVE (< 1+); CRYSTALS NEGATIVE (0-3 AVE/HPF); EPITHELIAL CELLS 0-2 (SQUAMOUS); RBC,URINE NEG (0-3AV/HPF); WBC,URINE 0-1 (0-5AV/HPF)
[2017-08-15] MEDS ORDERED: LIDOCAINE HCL 1% MDV 50 ML SOL SC ONE (21:02)
[2017-08-15] MEDS ORDERED: LIDOCAINE HCL 1% MPF 30 SOL ONE (21:04)
[2017-08-15] MEDS ORDERED: BACITRACIN 500 U/GM OIN TOP ONE (21:36)
[2017-08-15] MEDS ORDERED: SODIUM CHLORIDE 0.9% 1000ML 1,000 ML IV ONE (22:12)
[2017-08-15] MEDS ORDERED: KETOROLAC TROMETHAMINE 30 MG/ML SOL IV ONE (22:15)
[2017-08-15] MEDS ORDERED: KETOROLAC TROMETHAMINE 30 MG/ML SOL ONE (22:30)
[2017-08-15] MEDS ORDERED: TDAP VACCINE 0.5 ML SUS IM ONE ×2 (22:48→22:49)
[2017-08-15] MEDS ORDERED: MAGNESIUM HYDROXIDE 30 ML SUS PO PRN (23:20)
[2017-08-15] MEDS: ACETAMINOPHEN 500 MG 500 MG TAB PO SCH (23:45)
[2017-08-16] MEDS: ACETAMINOPHEN 500 MG 500 MG TAB PO SCH ×2 (07:55→16:20)
[2017-08-16] MEDS ORDERED: ENOXAPARIN 40 MG SOL SC SCH (08:00)
[2017-08-16] MEDS ORDERED: TIMOLOL MALEATE 0.5% LEFTEYE SCH (09:00)
[2017-08-16] MEDS ORDERED: DORZOLAMIDE LEFTEYE SCH (09:00)
[2017-08-16] MEDS: AMLODIPINE 5 MG TAB PO SCH (09:20)
[2017-08-16] MEDS: FUROSEMIDE 20 MG TAB PO SCH (09:20)
[2017-08-16] MEDS: DORZOLAMIDE HCL 2% SOL LEFTEYE SCH ×2 (09:22→20:17)
[2017-08-16] MEDS: TIMOLOL MALEATE 0.5% OPHTHAL SOL LEFTEYE SCH ×2 (09:22→20:12)
[2017-08-16 09:26] LABS: ABO A; ANTIBODY SCREEN Negative; RH TYPE Positive; UNIT TYPE A POSITIVE
[2017-08-16] MEDS: SODIUM CHLORIDE 0.9% FLUSH 10 ML SOL IV SCH ×2 (09:30→17:05)
[2017-08-16] MEDS: IBUPROFEN 400 MG TAB PO PRN (20:15)
[2017-08-16] MEDS: LATANOPROST 0.005% SOL LEFTEYE SCH (20:22)
[2017-08-17] MEDS: ACETAMINOPHEN 500 MG 500 MG TAB PO SCH ×2 (00:04→10:35)
[2017-08-17] MEDS: SODIUM CHLORIDE 0.9% FLUSH 10 ML SOL IV SCH ×3 (01:05→17:24)
[2017-08-17] MEDS ORDERED: SCOPOLAMINE 1.5MG PATCH TD SCH (06:00)
[2017-08-17] MEDS ORDERED: LACTATED RINGERS 1,000 ML IV ONE (06:00)
[2017-08-17] MEDS ORDERED: LACTATED RINGERS 1,000 ML IV SCH (07:00)
[2017-08-17] MEDS ORDERED: TRANEXAMIC ACID 100 MG/ML SOL ONE (07:19)
[2017-08-17] MEDS ORDERED: SODIUM CHLORIDE 20 ML 20 ML ONE (07:19)
[2017-08-17] MEDS ORDERED: BUPIVACAINE LIPOSOME 20 ML SUS ONE (07:19)
[2017-08-17] MEDS ORDERED: MIDAZOLAM 2 MG/2 ML SOL ONE (07:38)
[2017-08-17] MEDS ORDERED: FENTANYL 100MCG/2ML SOL ONE (07:38)
[2017-08-17] MEDS ORDERED: PROPOFOL 10 MG/ML EMU IV ONE ×2 (07:39→07:42)
[2017-08-17 07:46] LABS: CALCIUM 8.7 mg/dl (8.5-10.1); CARBON DIOXIDE 28.1 mEq/L (21-32); CREATININE 0.77 mg/dl (0.60-1.00); POTASSIUM 3.6 mMol/L (3.5-5.1)
[2017-08-17 07:49] LABS: BASOPHILS % (AUTO) 1 % (0-3); EOSINOPHILS % (AUTO) 3 % (0-9); HEMATOCRIT 34 % (35-47); HEMOGLOBIN 11.2 gm/dl (12.0-15.5); MEAN CORPUSCULAR HEMOGLOBIN 28.9 pg (27.0-32.0); MEAN CORPUSCULAR HGB CONC 33.3 gm/dl (32.0-36.0); MEAN CORPUSCULAR VOLUME 87 fL (81-99); MONOCYTES % (AUTO) 5.5 % (0-12); NEUTROPHILS % (AUTO) 79.4 % (37-80)
[2017-08-17] MEDS: TRANEXAMIC ACID 100 MG/ML SOL ONE ×2 (08:55→09:37)
[2017-08-17] MEDS ORDERED: GLYCOPYRROLATE 0.2 MG/ML SOL ONE (09:00)
[2017-08-17] MEDS ORDERED: CEFAZOLIN SODIUM 1 GM PDS ONE ×3 (09:00→23:18)
[2017-08-17] MEDS ORDERED: EPHEDRINE SULFATE 50 MG/ML SOL ONE (09:04)
[2017-08-17] MEDS ORDERED: PHENYLEPHRINE HYDROCHLORIDE 10 MG/ML SOL ONE (09:04)
[2017-08-17] MEDS ORDERED: MAGNESIUM HYDROXIDE 30 ML SUS PO PRN (09:34)
[2017-08-17] MEDS ORDERED: ALUMINUM/MAGNESIUM 30 ML SUS PO PRN (09:34)
[2017-08-17] MEDS ORDERED: SODIUM CHLORIDE 0.9% 500 ML 500 ML IV PRN (09:34)
[2017-08-17] MEDS ORDERED: DIPHENHYDRAMINE 25 MG CAP PO PRN (09:34)
[2017-08-17] MEDS ORDERED: ONDANSETRON 4 MG ODT BU PRN (09:34)
[2017-08-17] MEDS ORDERED: FLEET ENEMA PR PRN (09:34)
[2017-08-17] MEDS ORDERED: HYDROMORPHONE HCL 2 MG/ML SOL IV PRN (09:34)
[2017-08-17] MEDS ORDERED: ONDANSETRON HCL 4 MG/2 ML SOL IV PRN (09:34)
[2017-08-17] MEDS ORDERED: BISACODYL 10 MG SUP PR PRN (09:34)
[2017-08-17] MEDS ORDERED: DIAZEPAM 5 MG TAB PO PRN (09:34)
[2017-08-17] MEDS ORDERED: SODIUM CHLORIDE 0.9% FLUSH 10 ML SOL IV ONE (09:37)
[2017-08-17] MEDS ORDERED: SODIUM CHLORIDE 0.9% FLUSH 10 ML SOL IV SCH (09:45)
[2017-08-17] MEDS: DEXTROSE/SALINE 0.45/KCL 20MEQ 1,000 ML/1,000 ML SOL IV SCH ×2 (11:35→23:33)
[2017-08-17] MEDS: DORZOLAMIDE HCL 2% SOL LEFTEYE SCH ×2 (11:54→21:38)
[2017-08-17] MEDS: TIMOLOL MALEATE 0.5% OPHTHAL SOL LEFTEYE SCH ×2 (11:57→21:38)
[2017-08-17] MEDS: AMLODIPINE 5 MG TAB PO SCH (12:25)
[2017-08-17] MEDS: FUROSEMIDE 20 MG TAB PO SCH (12:25)
[2017-08-17] MEDS: ACETAMINOPHEN 325 MG PO SCH ×3 (13:26→21:37)
[2017-08-17] MEDS: CEFAZOLIN (PREMIX) 1 GM 1 GM/50 ML SOL IV SCH ×2 (15:42→23:27)
[2017-08-17] MEDS: SENNOSIDES A AND B 8.6 MG TAB PO SCH (21:37)
[2017-08-17] MEDS: LATANOPROST 0.005% SOL LEFTEYE SCH (21:38)
[2017-08-18] MEDS: SODIUM CHLORIDE 0.9% FLUSH 10 ML SOL IV SCH ×3 (01:48→18:39)
[2017-08-18] MEDS: IBUPROFEN 400 MG TAB PO PRN (01:52)
[2017-08-18 07:50] LABS: HEMOGLOBIN 11.1 gm/dl (12.0-15.5); MEAN CORPUSCULAR HEMOGLOBIN 30.6 pg (27.0-32.0); MEAN CORPUSCULAR HGB CONC 35.5 gm/dl (32.0-36.0)
[2017-08-18 09:07] LABS: CALCIUM 8.2 mg/dl (8.5-10.1); CARBON DIOXIDE 26.2 mEq/L (21-32); CREATININE 0.67 mg/dl (0.60-1.00); POTASSIUM 3.8 mMol/L (3.5-5.1)
[2017-08-18] MEDS: AMLODIPINE 5 MG TAB PO SCH (09:12)
[2017-08-18] MEDS: FUROSEMIDE 20 MG TAB PO SCH (09:12)
[2017-08-18] MEDS: DORZOLAMIDE HCL 2% SOL LEFTEYE SCH ×2 (09:13→21:00)
[2017-08-18] MEDS: TIMOLOL MALEATE 0.5% OPHTHAL SOL LEFTEYE SCH ×2 (09:13→21:00)
[2017-08-18] MEDS: ACETAMINOPHEN 325 MG PO SCH ×4 (09:13→21:15)
[2017-08-18] MEDS: RIVAROXABAN 10 MG TAB PO SCH (09:14)
[2017-08-18] MEDS: DEXTROSE/SALINE 0.45/KCL 20MEQ 1,000 ML/1,000 ML SOL IV SCH (11:00)
[2017-08-18] MEDS: LATANOPROST 0.005% SOL LEFTEYE SCH (21:00)
[2017-08-19] MEDS: SENNOSIDES A AND B 8.6 MG TAB PO SCH ×2 (00:29→20:29)
[2017-08-19] MEDS: SODIUM CHLORIDE 0.9% FLUSH 10 ML SOL IV SCH ×3 (02:13→17:39)
[2017-08-19] MEDS: ACETAMINOPHEN 325 MG PO SCH ×5 (03:24→20:29)
[2017-08-19 07:34] LABS: HEMOGLOBIN 9.7 gm/dl (12.0-15.5); MEAN CORPUSCULAR HEMOGLOBIN 30.1 pg (27.0-32.0); MEAN CORPUSCULAR HGB CONC 35.1 gm/dl (32.0-36.0)
[2017-08-19 07:51] LABS: CALCIUM 8.4 mg/dl (8.5-10.1); CARBON DIOXIDE 27.3 mEq/L (21-32); CREATININE 0.72 mg/dl (0.60-1.00); POTASSIUM 3.4 mMol/L (3.5-5.1)
[2017-08-19] MEDS: FUROSEMIDE 20 MG TAB PO SCH (10:38)
[2017-08-19] MEDS: DORZOLAMIDE HCL 2% SOL LEFTEYE SCH ×2 (10:39→20:29)
[2017-08-19] MEDS: AMLODIPINE 5 MG TAB PO SCH (10:40)
[2017-08-19] MEDS: TIMOLOL MALEATE 0.5% OPHTHAL SOL LEFTEYE SCH ×2 (10:40→20:29)
[2017-08-19] MEDS: RIVAROXABAN 10 MG TAB PO SCH (10:41)
[2017-08-19] MEDS ORDERED: POTASSIUM CHLORIDE 10 MEQ TER ONE (13:37)
[2017-08-19] MEDS: POTASSIUM CHLORIDE 10 MEQ CAPSULE PO SCH ×2 (13:44→21:00)
[2017-08-19] MEDS: LATANOPROST 0.005% SOL LEFTEYE SCH (20:29)
[2017-08-19] MEDS: TRAZODONE HYDROCHLORIDE 50 MG TAB PO SCH (20:29)
[2017-08-20] MEDS: SODIUM CHLORIDE 0.9% FLUSH 10 ML SOL IV SCH ×3 (01:00→17:15)
[2017-08-20 07:58] LABS: HEMOGLOBIN 9.3 gm/dl (12.0-15.5); MEAN CORPUSCULAR HGB CONC 34.8 gm/dl (32.0-36.0)
[2017-08-20 08:02] LABS: CALCIUM 8.7 mg/dl (8.5-10.1); CARBON DIOXIDE 27.3 mEq/L (21-32); CREATININE 0.66 mg/dl (0.60-1.00); POTASSIUM 3.7 mMol/L (3.5-5.1)
[2017-08-20 08:38] LABS: APPEARANCE,URINE Clear; BILIRUBIN,URINE NEGATIVE (NEGATIVE); COLOR,URINE Yellow; GLUCOSE, URINE (UA) NEGATIVE (NEGATIVE); KETONES,URINE NEGATIVE (NEGATIVE); LEUKOCYTE ESTERASE ,URINE NEGATIVE (NEGATIVE); NITRATE,URINE NEGATIVE (NEGATIVE); OCCULT BLOOD,URINE NEGATIVE (NEG-TRACE); UROBILINOGEN,URINE 0.2 (0.2-1.0 EU)
[2017-08-20 08:48] LABS: BACTERIA NEGATIVE (< 1+); CRYSTALS NEGATIVE (0-3 AVE/HPF); EPITHELIAL CELLS NEGATIVE (SQUAMOUS); RBC,URINE 0-1 (0-3AV/HPF); WBC,URINE NEGATIVE (0-5AV/HPF)
[2017-08-20] MEDS: RIVAROXABAN 10 MG TAB PO SCH (09:15)
[2017-08-20] MEDS: TIMOLOL MALEATE 0.5% OPHTHAL SOL LEFTEYE SCH ×2 (09:15→20:18)
[2017-08-20] MEDS: FUROSEMIDE 20 MG TAB PO SCH (09:15)
[2017-08-20] MEDS: DORZOLAMIDE HCL 2% SOL LEFTEYE SCH ×2 (09:15→20:18)
[2017-08-20] MEDS: AMLODIPINE 5 MG TAB PO SCH (09:15)
[2017-08-20] MEDS: ACETAMINOPHEN 325 MG PO SCH ×4 (09:15→20:20)
[2017-08-20] MEDS: POTASSIUM CHLORIDE 10 MEQ CAPSULE PO SCH ×2 (12:16→20:21)
[2017-08-20] MEDS ORDERED: POTASSIUM CHLORIDE 10 MEQ TER ONE ×2 (12:17→20:08)
[2017-08-20] MEDS: LATANOPROST 0.005% SOL LEFTEYE SCH (20:18)
[2017-08-20] MEDS: SENNOSIDES A AND B 8.6 MG TAB PO SCH (20:18)
[2017-08-20] MEDS: TRAZODONE HYDROCHLORIDE 50 MG TAB PO SCH (20:21)
[2017-08-20 21:42] VITALS: O2SAT 96
[2017-08-21 07:15] LABS: CALCIUM 8.3 mg/dl (8.5-10.1); CARBON DIOXIDE 26.7 mEq/L (21-32); CREATININE 0.67 mg/dl (0.60-1.00); POTASSIUM 4.1 mMol/L (3.5-5.1)
[2017-08-21] MEDS: SODIUM CHLORIDE 0.9% FLUSH 10 ML SOL IV SCH ×2 (07:40→09:21)
[2017-08-21 09:14] VITALS: BP 148/83; PULSE 84; RESP 18; TEMP 98.4
[2017-08-21] MEDS: AMLODIPINE 5 MG TAB PO SCH (09:20)
[2017-08-21] MEDS: FUROSEMIDE 20 MG TAB PO SCH (09:20)
[2017-08-21] MEDS: RIVAROXABAN 10 MG TAB PO SCH (09:21)
[2017-08-21] MEDS: ACETAMINOPHEN 325 MG PO SCH ×2 (09:21→13:18)
[2017-08-21] MEDS: DORZOLAMIDE HCL 2% SOL LEFTEYE SCH (10:42)
[2017-08-21] MEDS: TIMOLOL MALEATE 0.5% OPHTHAL SOL LEFTEYE SCH (10:42)
[2017-08-21] MEDS: POTASSIUM CHLORIDE 10 MEQ CAPSULE PO SCH (10:49)
[2017-08-21] MEDS ORDERED: PNEUMOCOCCAL VACCINE 0.5 ML SOL IM ONE (14:22)
== END 2017-08-21 14:55 | disposition swing bed (61) | DRG 470 ==
LOC: ED 19:30 → ACUTE CARE 22:12
PROVIDERS: ADMIT Family Medicine; ATTEND Family Medicine
PROC: F01L5YZ Range of Motion and Joint Integrity Assessment of Musculoskeletal System - Lower Back / Lower Extremity using Other Equipment (ICD-10-PCS; 2017-08-17)
PROC: F01H1ZZ Integumentary Integrity Assessment of Integumentary System - Whole Body (ICD-10-PCS; 2017-08-17)
PROC: F01ZDFZ Gait and/or Balance Assessment using Assistive, Adaptive, Supportive or Protective Equipment (ICD-10-PCS; 2017-08-17)
PROC: 0SRS0J9 Replacement of Left Hip Joint, Femoral Surface with Synthetic Substitute, Cemented, Open Approach (ICD-10-PCS; principal; 2017-08-17 08:00)
PROC: F02Z0FZ Bathing/Showering Assessment using Assistive, Adaptive, Supportive or Protective Equipment (ICD-10-PCS; 2017-08-18)
PROC: F02Z3ZZ Grooming/Personal Hygiene Assessment (ICD-10-PCS; 2017-08-18)
DX: S72.002A Fracture of unspecified part of neck of left femur, initial encounter for closed fracture (principal); W19.XXXA Unspecified fall, initial encounter; R40.2362 Coma scale, best motor response, obeys commands, at arrival to emergency department; R40.2142 Coma scale, eyes open, spontaneous, at arrival to emergency department; R40.2252 Coma scale, best verbal response, oriented, at arrival to emergency department; S72.92XA Unspecified fracture of left femur, initial encounter for closed fracture; I10 Essential (primary) hypertension; S51.812A Laceration without foreign body of left forearm, initial encounter; R47.81 Slurred speech; E87.6 Hypokalemia; T14.8XXA Other injury of unspecified body region, initial encounter
CPT/HCPCS: 12032; 36415; 51798; 70450; 71045; 71046; 73501; 73502; 73560; 80048; 81001; 85025; 85027; 86850; 86900; 86901; 86920; 90715; 90732; 93005; 99070; 99284; 99285; J0690; J1650; J1885; J2250; J3010; J7643; A6232; A6402; A9270-GY; G0008; J2001; J2370; J2704; J3490; L1830; Q3014

== ENCOUNTER 2017-08-21 10:20 | Inpatient (IN) | payer MEDICARE, BC ==
[2017-08-21] MEDS ORDERED: MAGNESIUM HYDROXIDE 30 ML SUS PO PRN (14:56)
[2017-08-21] MEDS: ACETAMINOPHEN 325 MG PO SCH ×2 (19:16→22:47)
[2017-08-21] MEDS: LATANOPROST 0.005% SOL LEFTEYE SCH (20:51)
[2017-08-21] MEDS: DORZOLAMIDE HCL 2% SOL LEFTEYE SCH (20:51)
[2017-08-21] MEDS: TIMOLOL MALEATE 0.5% OPHTHAL SOL LEFTEYE SCH (20:51)
[2017-08-21] MEDS: SENNOSIDES A AND B 8.6 MG TAB PO SCH (20:52)
[2017-08-21] MEDS: TRAZODONE HYDROCHLORIDE 50 MG TAB PO SCH (20:54)
[2017-08-21] MEDS: POTASSIUM CHLORIDE 10 MEQ CAPSULE PO SCH (20:54)
[2017-08-21] MEDS: ASCORBIC ACID/COPPER/LUTEIN/ 1 CAP CAP PO SCH (22:40)
[2017-08-22 07:23] LABS: BASOPHILS % (AUTO) 1 % (0-3); EOSINOPHILS % (AUTO) 4 % (0-9); HEMATOCRIT 28 % (35-47); HEMOGLOBIN 9.7 gm/dl (12.0-15.5); LYMPHOCYTES % (AUTO) 23.5 % (10-50); MEAN CORPUSCULAR HEMOGLOBIN 29.6 pg (27.0-32.0); MEAN CORPUSCULAR HGB CONC 34.3 gm/dl (32.0-36.0); MEAN CORPUSCULAR VOLUME 86 fL (81-99); MONOCYTES % (AUTO) 9.9 % (0-12); NEUTROPHILS % (AUTO) 62.3 % (37-80)
[2017-08-22 07:38] LABS: CALCIUM 8.6 mg/dl (8.5-10.1); CARBON DIOXIDE 28.8 mEq/L (21-32); CREATININE 0.71 mg/dl (0.60-1.00)
[2017-08-22] MEDS: AMLODIPINE 5 MG TAB PO SCH (09:38)
[2017-08-22] MEDS: ACETAMINOPHEN 325 MG PO SCH ×4 (09:38→20:20)
[2017-08-22] MEDS: FUROSEMIDE 20 MG TAB PO SCH (09:38)
[2017-08-22] MEDS: RIVAROXABAN 10 MG TAB PO SCH (09:38)
[2017-08-22] MEDS: DORZOLAMIDE HCL 2% SOL LEFTEYE SCH (09:39)
[2017-08-22] MEDS: TIMOLOL MALEATE 0.5% OPHTHAL SOL LEFTEYE SCH (09:43)
[2017-08-22] MEDS: CHOLECALCIFEROL 1,000 IU TAB PO SCH (12:04)
[2017-08-22] MEDS: ASCORBIC ACID/COPPER/LUTEIN/ 1 CAP CAP PO SCH ×2 (12:05→20:21)
[2017-08-22] MEDS: POTASSIUM CHLORIDE 10 MEQ CAPSULE PO SCH ×2 (12:05→20:20)
[2017-08-22] MEDS: DORZOLAMIDE/TIMOLOL 200 DROP SOL LEFTEYE SCH (20:20)
[2017-08-22] MEDS: LATANOPROST 0.005% SOL LEFTEYE SCH (20:20)
[2017-08-22] MEDS: SENNOSIDES A AND B 8.6 MG TAB PO SCH (20:21)
[2017-08-22] MEDS: TRAZODONE HYDROCHLORIDE 50 MG TAB PO SCH (20:21)
[2017-08-23] MEDS: IBUPROFEN 400 MG TAB PO PRN (06:58)
[2017-08-23] MEDS: FUROSEMIDE 20 MG TAB PO SCH (09:41)
[2017-08-23] MEDS: DORZOLAMIDE/TIMOLOL 200 DROP SOL LEFTEYE SCH ×2 (09:41→20:49)
[2017-08-23] MEDS: POTASSIUM CHLORIDE 10 MEQ CAPSULE PO SCH ×2 (09:42→20:49)
[2017-08-23] MEDS: AMLODIPINE 5 MG TAB PO SCH (09:42)
[2017-08-23] MEDS: ASCORBIC ACID/COPPER/LUTEIN/ 1 CAP CAP PO SCH ×2 (09:43→20:49)
[2017-08-23] MEDS: CHOLECALCIFEROL 1,000 IU TAB PO SCH (09:43)
[2017-08-23] MEDS: RIVAROXABAN 10 MG TAB PO SCH (09:43)
[2017-08-23] MEDS: ACETAMINOPHEN 325 MG PO SCH ×4 (09:43→20:48)
[2017-08-23] MEDS: LATANOPROST 0.005% SOL LEFTEYE SCH (20:49)
[2017-08-23] MEDS: TRAZODONE HYDROCHLORIDE 50 MG TAB PO SCH (20:49)
[2017-08-23] MEDS: SENNOSIDES A AND B 8.6 MG TAB PO SCH (20:51)
[2017-08-24] MEDS: AMLODIPINE 5 MG TAB PO SCH (08:43)
[2017-08-24] MEDS: CHOLECALCIFEROL 1,000 IU TAB PO SCH (08:43)
[2017-08-24] MEDS: RIVAROXABAN 10 MG TAB PO SCH (08:43)
[2017-08-24] MEDS: FUROSEMIDE 20 MG TAB PO SCH (08:43)
[2017-08-24] MEDS: ACETAMINOPHEN 325 MG PO SCH ×4 (08:43→21:18)
[2017-08-24] MEDS: DORZOLAMIDE/TIMOLOL 200 DROP SOL LEFTEYE SCH ×2 (08:44→21:20)
[2017-08-24] MEDS: POTASSIUM CHLORIDE 10 MEQ CAPSULE PO SCH ×2 (08:44→21:19)
[2017-08-24] MEDS: ASCORBIC ACID/COPPER/LUTEIN/ 1 CAP CAP PO SCH ×2 (08:44→21:20)
[2017-08-24] MEDS: LATANOPROST 0.005% SOL LEFTEYE SCH (21:19)
[2017-08-24] MEDS: TRAZODONE HYDROCHLORIDE 50 MG TAB PO SCH (21:19)
[2017-08-24] MEDS: SENNOSIDES A AND B 8.6 MG TAB PO SCH (21:19)
[2017-08-25] MEDS: POTASSIUM CHLORIDE 10 MEQ CAPSULE PO SCH ×2 (09:48→20:16)
[2017-08-25] MEDS: FUROSEMIDE 20 MG TAB PO SCH (09:48)
[2017-08-25] MEDS: CHOLECALCIFEROL 1,000 IU TAB PO SCH (09:49)
[2017-08-25] MEDS: RIVAROXABAN 10 MG TAB PO SCH (09:49)
[2017-08-25] MEDS: AMLODIPINE 5 MG TAB PO SCH (09:49)
[2017-08-25] MEDS: ACETAMINOPHEN 325 MG PO SCH ×4 (09:49→20:16)
[2017-08-25] MEDS: DORZOLAMIDE/TIMOLOL 200 DROP SOL LEFTEYE SCH ×2 (09:51→20:16)
[2017-08-25] MEDS: ASCORBIC ACID/COPPER/LUTEIN/ 1 CAP CAP PO SCH ×2 (09:54→20:16)
[2017-08-25] MEDS: TRAZODONE HYDROCHLORIDE 50 MG TAB PO SCH (20:16)
[2017-08-25] MEDS: SENNOSIDES A AND B 8.6 MG TAB PO SCH (20:16)
[2017-08-25] MEDS: LATANOPROST 0.005% SOL LEFTEYE SCH (20:16)
[2017-08-26] MEDS: IBUPROFEN 400 MG TAB PO PRN (00:02)
[2017-08-26] MEDS: DORZOLAMIDE/TIMOLOL 200 DROP SOL LEFTEYE SCH ×2 (09:46→20:10)
[2017-08-26] MEDS: ACETAMINOPHEN 325 MG PO SCH ×4 (09:47→20:10)
[2017-08-26] MEDS: AMLODIPINE 5 MG TAB PO SCH (09:47)
[2017-08-26] MEDS: CHOLECALCIFEROL 1,000 IU TAB PO SCH (09:47)
[2017-08-26] MEDS: ASCORBIC ACID/COPPER/LUTEIN/ 1 CAP CAP PO SCH ×2 (09:47→20:10)
[2017-08-26] MEDS: RIVAROXABAN 10 MG TAB PO SCH (09:47)
[2017-08-26] MEDS: POTASSIUM CHLORIDE 10 MEQ CAPSULE PO SCH ×2 (09:47→20:10)
[2017-08-26] MEDS: FUROSEMIDE 20 MG TAB PO SCH (09:47)
[2017-08-26] MEDS: LATANOPROST 0.005% SOL LEFTEYE SCH (20:10)
[2017-08-26] MEDS: TRAZODONE HYDROCHLORIDE 50 MG TAB PO SCH (20:10)
[2017-08-26] MEDS: SENNOSIDES A AND B 8.6 MG TAB PO SCH (20:10)
[2017-08-27] MEDS: DORZOLAMIDE/TIMOLOL 200 DROP SOL LEFTEYE SCH ×2 (08:59→20:24)
[2017-08-27] MEDS: FUROSEMIDE 20 MG TAB PO SCH (09:00)
[2017-08-27] MEDS: POTASSIUM CHLORIDE 10 MEQ CAPSULE PO SCH ×2 (09:00→20:20)
[2017-08-27] MEDS: AMLODIPINE 5 MG TAB PO SCH (09:01)
[2017-08-27] MEDS: ASCORBIC ACID/COPPER/LUTEIN/ 1 CAP CAP PO SCH ×2 (09:01→20:21)
[2017-08-27] MEDS: ACETAMINOPHEN 325 MG PO SCH ×4 (09:01→20:21)
[2017-08-27] MEDS: CHOLECALCIFEROL 1,000 IU TAB PO SCH (09:02)
[2017-08-27] MEDS: RIVAROXABAN 10 MG TAB PO SCH (09:02)
[2017-08-27] MEDS: TRAZODONE HYDROCHLORIDE 50 MG TAB PO SCH (20:21)
[2017-08-27] MEDS: SENNOSIDES A AND B 8.6 MG TAB PO SCH (20:22)
[2017-08-27] MEDS: LATANOPROST 0.005% SOL LEFTEYE SCH (20:24)
[2017-08-28] MEDS: DORZOLAMIDE/TIMOLOL 200 DROP SOL LEFTEYE SCH ×2 (09:21→20:38)
[2017-08-28] MEDS: FUROSEMIDE 20 MG TAB PO SCH (09:23)
[2017-08-28] MEDS: POTASSIUM CHLORIDE 10 MEQ CAPSULE PO SCH (09:23)
[2017-08-28] MEDS: ASCORBIC ACID/COPPER/LUTEIN/ 1 CAP CAP PO SCH ×2 (09:24→20:39)
[2017-08-28] MEDS: RIVAROXABAN 10 MG TAB PO SCH (09:25)
[2017-08-28] MEDS: AMLODIPINE 5 MG TAB PO SCH (09:25)
[2017-08-28] MEDS: CHOLECALCIFEROL 1,000 IU TAB PO SCH (09:25)
[2017-08-28] MEDS: ACETAMINOPHEN 325 MG PO SCH ×4 (09:25→22:13)
[2017-08-28] MEDS: POTASSIUM CHLORIDE 10 MEQ TER PO SCH (20:38)
[2017-08-28] MEDS: SENNOSIDES A AND B 8.6 MG TAB PO SCH (20:40)
[2017-08-28] MEDS: TRAZODONE HYDROCHLORIDE 50 MG TAB PO SCH (20:40)
[2017-08-28] MEDS: LATANOPROST 0.005% SOL LEFTEYE SCH (20:41)
[2017-08-29] MEDS: ACETAMINOPHEN 325 MG PO SCH ×5 (03:12→20:21)
[2017-08-29] MEDS: DORZOLAMIDE/TIMOLOL 200 DROP SOL LEFTEYE SCH ×2 (09:10→20:19)
[2017-08-29] MEDS: POTASSIUM CHLORIDE 10 MEQ TER PO SCH ×2 (09:10→20:20)
[2017-08-29] MEDS: ASCORBIC ACID/COPPER/LUTEIN/ 1 CAP CAP PO SCH ×2 (09:11→20:20)
[2017-08-29] MEDS: AMLODIPINE 5 MG TAB PO SCH (09:11)
[2017-08-29] MEDS: FUROSEMIDE 20 MG TAB PO SCH (09:11)
[2017-08-29] MEDS: RIVAROXABAN 10 MG TAB PO SCH (09:12)
[2017-08-29] MEDS: CHOLECALCIFEROL 1,000 IU TAB PO SCH (09:12)
[2017-08-29] MEDS: TRAZODONE HYDROCHLORIDE 50 MG TAB PO SCH (20:20)
[2017-08-29] MEDS: LATANOPROST 0.005% SOL LEFTEYE SCH (20:21)
[2017-08-29] MEDS: SENNOSIDES A AND B 8.6 MG TAB PO SCH (20:21)
[2017-08-30] MEDS: IBUPROFEN 400 MG TAB PO PRN (05:27)
[2017-08-30 07:43] LABS: BASOPHILS % (AUTO) 1 % (0-3); EOSINOPHILS % (AUTO) 3 % (0-9); HEMATOCRIT 31 % (35-47); LYMPHOCYTES % (AUTO) 23.68 % (10-50); MEAN CORPUSCULAR HEMOGLOBIN 29.2 pg (27.0-32.0); MEAN CORPUSCULAR HGB CONC 32.6 gm/dl (32.0-36.0); MEAN CORPUSCULAR VOLUME 90 fL (81-99); MONOCYTES % (AUTO) 6.8 % (0-12); NEUTROPHILS % (AUTO) 65.4 % (37-80)
[2017-08-30 07:47] LABS: CALCIUM 8.7 mg/dl (8.5-10.1); CARBON DIOXIDE 29.7 mEq/L (21-32); CREATININE 0.83 mg/dl (0.60-1.00); POTASSIUM 4.2 mMol/L (3.5-5.1)
[2017-08-30] MEDS: POTASSIUM CHLORIDE 10 MEQ TER PO SCH ×2 (08:44→20:21)
[2017-08-30] MEDS: DORZOLAMIDE/TIMOLOL 200 DROP SOL LEFTEYE SCH ×2 (08:44→20:22)
[2017-08-30] MEDS: RIVAROXABAN 10 MG TAB PO SCH (08:45)
[2017-08-30] MEDS: CHOLECALCIFEROL 1,000 IU TAB PO SCH (08:45)
[2017-08-30] MEDS: ASCORBIC ACID/COPPER/LUTEIN/ 1 CAP CAP PO SCH ×2 (08:45→20:20)
[2017-08-30] MEDS: ACETAMINOPHEN 325 MG PO SCH ×4 (08:45→20:22)
[2017-08-30] MEDS: AMLODIPINE 5 MG TAB PO SCH (08:45)
[2017-08-30] MEDS: FUROSEMIDE 20 MG TAB PO SCH (08:45)
[2017-08-30] MEDS: TRAZODONE HYDROCHLORIDE 50 MG TAB PO SCH (20:20)
[2017-08-30] MEDS: SENNOSIDES A AND B 8.6 MG TAB PO SCH (20:20)
[2017-08-30] MEDS: LATANOPROST 0.005% SOL LEFTEYE SCH (20:20)
[2017-08-31] MEDS: POTASSIUM CHLORIDE 10 MEQ TER PO SCH ×2 (08:54→21:04)
[2017-08-31] MEDS: ASCORBIC ACID/COPPER/LUTEIN/ 1 CAP CAP PO SCH ×2 (08:55→21:04)
[2017-08-31] MEDS: AMLODIPINE 5 MG TAB PO SCH (08:55)
[2017-08-31] MEDS: ACETAMINOPHEN 325 MG PO SCH ×4 (08:55→21:05)
[2017-08-31] MEDS: FUROSEMIDE 20 MG TAB PO SCH (08:55)
[2017-08-31] MEDS: CHOLECALCIFEROL 1,000 IU TAB PO SCH (08:55)
[2017-08-31] MEDS: DORZOLAMIDE/TIMOLOL 200 DROP SOL LEFTEYE SCH ×2 (08:55→21:01)
[2017-08-31] MEDS: RIVAROXABAN 10 MG TAB PO SCH (08:55)
[2017-08-31 16:05] VITALS: O2SAT 98
[2017-08-31] MEDS: SENNOSIDES A AND B 8.6 MG TAB PO SCH (21:05)
[2017-08-31] MEDS: TRAZODONE HYDROCHLORIDE 50 MG TAB PO SCH (21:09)
[2017-08-31] MEDS: LATANOPROST 0.005% SOL LEFTEYE SCH (21:10)
[2017-09-01] MEDS: DORZOLAMIDE/TIMOLOL 200 DROP SOL LEFTEYE SCH (08:24)
[2017-09-01] MEDS: AMLODIPINE 5 MG TAB PO SCH (08:28)
[2017-09-01] MEDS: FUROSEMIDE 20 MG TAB PO SCH (08:28)
[2017-09-01] MEDS: POTASSIUM CHLORIDE 10 MEQ TER PO SCH (08:28)
[2017-09-01] MEDS: ASCORBIC ACID/COPPER/LUTEIN/ 1 CAP CAP PO SCH (08:28)
[2017-09-01] MEDS: ACETAMINOPHEN 325 MG PO SCH (08:29)
[2017-09-01] MEDS: CHOLECALCIFEROL 1,000 IU TAB PO SCH (08:29)
[2017-09-01] MEDS: RIVAROXABAN 10 MG TAB PO SCH (08:29)
[2017-09-01 09:10] VITALS: BP 120/72; PULSE 79; RESP 18; TEMP 98.2
== END 2017-09-01 11:25 | DRG 561 ==
LOC: ACUTE CARE 15:00
PROVIDERS: ADMIT Family Medicine; ATTEND Family Medicine
PROC: F01K5YZ Range of Motion and Joint Integrity Assessment of Musculoskeletal System - Upper Back / Upper Extremity using Other Equipment (ICD-10-PCS; principal; 2017-08-21)
PROC: F01L5YZ Range of Motion and Joint Integrity Assessment of Musculoskeletal System - Lower Back / Lower Extremity using Other Equipment (ICD-10-PCS; 2017-08-21)
PROC: F02Z0ZZ Bathing/Showering Assessment (ICD-10-PCS; 2017-08-22)
PROC: F02Z3ZZ Grooming/Personal Hygiene Assessment (ICD-10-PCS; 2017-08-22)
DX: S72.002D Fracture of unspecified part of neck of left femur, subsequent encounter for closed fracture with routine healing (principal); Z47.89 Encounter for other orthopedic aftercare; Z98.890 Other specified postprocedural states; I10 Essential (primary) hypertension; S51.812D Laceration without foreign body of left forearm, subsequent encounter
CPT/HCPCS: 36415; 51798; 80048; 85025; A6232; A9270-GY

== ENCOUNTER 2017-09-28 12:56 | Outpatient (CLI) | payer MEDICARE, BC | END 2017-09-28 12:57 | disposition home or self-care (01) | DRG 561 | LOC: CONVCARE 12:56 | PROVIDERS: ATTEND Orthopaedic Surgery | DX: S72.002D Fracture of unspecified part of neck of left femur, subsequent encounter for closed fracture with routine healing (principal); S72.001D Fracture of unspecified part of neck of right femur, subsequent encounter for closed fracture with routine healing | CPT/HCPCS: 73521 ==